=== PATIENT | male | born 1955 | race Caucasian/White ===

== ENCOUNTER → 2020-07-26 | Day surgery (SDC) | payer OTHER ==
[~2020-07-26] VITALS: Ht 177.8 cm; Wt 122.0 kg
[~2020-07-26] MED LIST: ALPRAZOLAM1 MG PO; ASPIRIN EC81 MG PO; AVODART 0.5 MG0.5 MG PO; BETAMETHASONE D30 ML TP; CEPHALEXIN500 M1 PO; COLCRYS0.6 MG PO; COREG 25MG TAB25 MG PO; COZAAR 25MG TAB25 MG PO; FIASP PENF100 UNIT/1 SQ; HYDROCODON-ACE1 EAC6 PO; HYGROTON TAB 2525 MG PO; NIZORAL 2% CREA15 GM TOP; OMEPRAZOLE20 MG PO; OMNICEF 300 MG300 MG PO; OXYBUTYNIN CHLO15 MG PO; PHENAZOPYRIDIN200 MG PO; PROBIOTIC & AC1 EACH PO; RISPERIDONE2 MG PO; SPIRONOLACTONE1 EACH PO; TAMSULOSIN HCL0.4 MG PO; TOUJEO MAX300 UNIT/1 SQ; ZYRTEC10 MG PO
== END | disposition home or self-care (01) ==
LOC: OR 10:35
DX: N40.1 Benign prostatic hyperplasia with lower urinary tract symptoms (principal); R39.15 Urgency of urination; R30.0 Dysuria; N32.81 Overactive bladder; M10.9 Gout, unspecified; F17.290 Nicotine dependence, other tobacco product, uncomplicated; J43.9 Emphysema, unspecified; I10 Essential (primary) hypertension; I25.10 Atherosclerotic heart disease of native coronary artery without angina pectoris; E78.00 Pure hypercholesterolemia, unspecified; E11.9 Type 2 diabetes mellitus without complications; K21.9 Gastro-esophageal reflux disease without esophagitis; F41.9 Anxiety disorder, unspecified; M06.9 Rheumatoid arthritis, unspecified; Z79.82 Long term (current) use of aspirin; Z79.891 Long term (current) use of opiate analgesic; Z79.4 Long term (current) use of insulin; Z79.899 Other long term (current) drug therapy
CPT/HCPCS: 82962; 87086; J7040

== ENCOUNTER 2020-07-31 14:24 | Emergency (ER) | payer OTHER ==
[~2020-07-31 14:24] MED LIST changes: -CEPHALEXIN500 M1 PO; -NIZORAL 2% CREA15 GM TOP
[2020-07-31 17:38] LABS: HEMOGLOBIN 13.6 gm/dl (14.0-17.5); RED BLOOD COUNT 4.25 M/UL (4.20-5.50); WHITE BLOOD COUNT 9.9 K/UL (4.5-11.0)
[2020-07-31] MEDS ORDERED: CEPHALEXIN500 M1 PO (18:34)
[2020-07-31] MEDS ORDERED: NIZORAL 2% CREA15 GM TOP (18:34)
== END 2020-07-31 18:45 | disposition home or self-care (01) ==
LOC: ER1 14:24
PROVIDERS: Physician Assistant
DX: N39.0 Urinary tract infection, site not specified (principal); B37.9 Candidiasis, unspecified; E11.9 Type 2 diabetes mellitus without complications; Z87.442 Personal history of urinary calculi
CPT/HCPCS: 80053; 81001; 85025; 87086; 99283